=== PATIENT | female | born 1960 | race African-American/Black ===

== ENCOUNTER 2019-02-18 22:05 | Emergency (ER) | payer MEDICARE, OTHER ==
[~2019-02-18] VITALS: Ht 167.6 cm; Wt 100.0 kg
[2019-02-18] MEDS ORDERED: SODIUM CHLORIDE 0.9% 1,000 ML IV ONE (23:07)
[2019-02-18 23:37] LABS: BASOPHILS % 0.8 % (0.0-2.0); EOSINOPHILS % 1.2 % (0.0-5.0); HEMATOCRIT. 41.8 % (36.0-48.0); HEMOGLOBIN. 14.5 g/dL (12.0-16.0); LYMPHOCYTES % 25.7 % (20.0-50.0); MEAN CORPUSCULAR HEMOGLOBIN 31.4 pg (28.0-32.0); MEAN CORPUSCULAR VOLUME 90.8 fL (81.0-99.0); MEAN PLATELET VOLUME 11.1 fl (7.4-10.4); MONOCYTES % 5.6 % (2.0-8.0); NEUTROPHILS % 66.7 % (40.0-76.0); PLATELET 219 x1000/uL (130-400); RED BLOOD CELL COUNT 4.61 mill/uL (4.2-5.4); RED CELL DISTRIBUTION WIDTH 12.9 % (11.6-14.6)
[2019-02-18 23:45] LABS: CHLORIDE 106 mEq/L (98-107)
[2019-02-19 03:31] VITALS: BP 185/64
== END 2019-02-19 03:40 | disposition home or self-care (01) ==
LOC: ER 22:44
DX: N17.9 Acute kidney failure, unspecified (principal); I12.9 Hypertensive chronic kidney disease with stage 1 through stage 4 chronic kidney disease, or unspecified chronic kidney disease; E86.0 Dehydration; R42 Dizziness and giddiness; R11.2 Nausea with vomiting, unspecified; R19.7 Diarrhea, unspecified; Z86.73 Personal history of transient ischemic attack (TIA), and cerebral infarction without residual deficits
CPT/HCPCS: 36415; 80053; 85025; 96360; 96361; 99283; J7030

== ENCOUNTER 2022-05-01 19:51 | Inpatient (IN) | payer OTHER ==
[~2022-05-01] VITALS: Ht 165.1 cm; Wt 95.3 kg
[2022-05-01] MEDS ORDERED: LABETALOL 5MG/ML SYR 20 MG/4 ML SYRINGE IV NR (22:00)
[2022-05-01 22:37] LABS: BASOPHILS % 1.1 % (0.0-2.0); EOSINOPHILS % 0.3 % (0.0-5.0); HEMATOCRIT. 45.5 % (36.0-48.0); HEMOGLOBIN. 15.3 g/dL (12.0-16.0); LYMPHOCYTES % 20.4 % (20.0-50.0); MEAN CORPUSCULAR HEMOGLOBIN 30.8 pg (28.0-32.0); MEAN CORPUSCULAR VOLUME 91.9 fL (81.0-99.0); MEAN PLATELET VOLUME 10.9 fl (7.4-10.4); MONOCYTES % 5.2 % (2.0-8.0); PLATELET 203 x1000/uL (130-400); RED BLOOD CELL COUNT 4.95 mill/uL (4.2-5.4); RED CELL DISTRIBUTION WIDTH 13.7 % (11.6-14.6)
[2022-05-01 22:46] LABS: CHLORIDE 108 mEq/L (98-107)
[2022-05-01] MEDS ORDERED: ASPIRIN 325MG TABLET PO NR (23:15)
[2022-05-02] VITALS (11 sets, daily range): BP systolic 140–190; BP diastolic 64–110
[2022-05-02] MEDS ORDERED: IOHEXOL-350 100 ML BOTTLE ONE (00:53)
[2022-05-02] MEDS ORDERED: HYDRALAZINE 20MG/ML VIAL IV PRN (01:15)
[2022-05-02] MEDS: AMLODIPINE 5MG TABLET PO SCH ×3 (01:35→20:30)
[2022-05-02] MEDS ORDERED: ATOR10TA69 PO (04:49)
[2022-05-02] MEDS ORDERED: NIFE20CA MT (04:49)
[2022-05-02] MEDS ORDERED: HYDR-4135 PO (04:49)
[2022-05-02] MEDS ORDERED: LABE200T9 MT (04:49)
[2022-05-02] MEDS ORDERED: LISI10TA26 MT (04:49)
[2022-05-02] MEDS ORDERED: DEXTROSE 5% WATER 1,000 ML IV SCH (05:45)
[2022-05-02 06:41] LABS: BASOPHILS % 0.7 % (0.0-2.0); EOSINOPHILS % 0.3 % (0.0-5.0); HEMATOCRIT. 42.6 % (36.0-48.0); HEMOGLOBIN. 13.9 g/dL (12.0-16.0); LYMPHOCYTES % 30.3 % (20.0-50.0); MEAN CORPUSCULAR HEMOGLOBIN 30.5 pg (28.0-32.0); MEAN CORPUSCULAR VOLUME 93.8 fL (81.0-99.0); MEAN PLATELET VOLUME 11.2 fl (7.4-10.4); MONOCYTES % 8.1 % (2.0-8.0); NEUTROPHILS % 60.6 % (40.0-76.0); PLATELET 203 x1000/uL (130-400); RED BLOOD CELL COUNT 4.55 mill/uL (4.2-5.4); RED CELL DISTRIBUTION WIDTH 14.1 % (11.6-14.6)
[2022-05-02] MEDS: CLONIDINE 0.1MG TABLET PO PRN ×2 (08:26→18:33)
[2022-05-02] MEDS ORDERED: ATORVASTATIN CALCIUM 10MG TABLET PO SCH (09:00)
[2022-05-02] MEDS ORDERED: LISINOPRIL 10MG TABLET PO SCH (09:00)
[2022-05-02] MEDS ORDERED: NIFEDIPINE XL 30MG TAB PO SCH (09:00)
[2022-05-02] MEDS: ASPIRIN 81MG TABLET PO SCH (13:03)
[2022-05-02] MEDS: HYDRALAZINE HCL 50MG TABLET PO SCH ×2 (13:04→17:47)
[2022-05-02] MEDS: LABETALOL HCL 200MG TABLET PO SCH ×2 (13:04→17:47)
[2022-05-02] MEDS: CLOPIDOGREL 75MG TABLET PO SCH (18:33)
[2022-05-02] MEDS: ATORVASTATIN CALCIUM 40MG TABLET PO SCH (20:30)
[2022-05-02 21:02] LABS: CLARITY URINE CLEAR (CLEAR); COLOR URINE YELLOW (YELLOW); KETONES URINE NEGATIVE (NEGATIVE); LEUKOCYTE ESTERASE URINE NEGATIVE (NEGATIVE); NITRITE URINE NEGATIVE (NEGATIVE); OCCULT BLOOD URINE NEGATIVE (NEGATIVE); PH URINE 6.5 (4.5-8.0); PROTEIN URINE 1+ (NEGATIVE); SPECIFIC GRAVITY URINE 1.026 (1.005-1.030)
[2022-05-02 21:20] LABS: *AMPHETAMINES SCREEN URINE NEGATIVE (NEGATIVE); *BARBITURATES SCREEN URINE NEGATIVE (NEGATIVE); *BENZODIAZEPINES SCREEN URINE NEGATIVE (NEGATIVE); *COCAINE SCREEN URINE NEGATIVE (NEGATIVE); CANNABINOID URINE SCREEN NEGATIVE (NEGATIVE); METHADONE URINE SCREEN NEGATIVE (NEGATIVE); OPIATES URINE SCREEN NEGATIVE (NEGATIVE); PHENCYCLIDINE URINE SCREEN NEGATIVE (NEGATIVE)
[2022-05-03] VITALS (12 sets, daily range): BP systolic 99–161; BP diastolic 52–94
[2022-05-03 06:56] LABS: HEMATOCRIT 41.8 % (36.0-48.0); HEMOGLOBIN 14.1 g/dL (12.0-16.0); MEAN CORPUSCULAR VOLUME 92.2 fL (81.0-99.0); PLATELET 188 x1000/uL (130-400); RED BLOOD CELL COUNT 4.53 mill/uL (4.2-5.4); RED CELL DISTRIBUTION WIDTH 14.1 % (11.6-14.6)
[2022-05-03] MEDS: AMLODIPINE 5MG TABLET PO SCH ×2 (09:10→20:27)
[2022-05-03] MEDS: CLOPIDOGREL 75MG TABLET PO SCH (09:10)
[2022-05-03] MEDS: HYDRALAZINE HCL 50MG TABLET PO SCH ×3 (09:10→18:26)
[2022-05-03] MEDS: ASPIRIN 81MG TABLET PO SCH (09:10)
[2022-05-03] MEDS: LABETALOL HCL 200MG TABLET PO SCH ×2 (09:11→20:27)
[2022-05-03] MEDS ORDERED: POTASSIUM CHLORIDE 20MEQ/PACKET PO NR (10:45)
[2022-05-03] MEDS: NIFEDIPINE XL 30MG TAB PO SCH ×2 (11:24→20:27)
[2022-05-03] MEDS ORDERED: BISACODYL 5MG TABLET PO PRN (14:00)
[2022-05-03] MEDS: DEXT 5%/0.45% NACL KCL 20MEQ/L 1,000 ML IV SCH (17:00)
[2022-05-03] MEDS: ATORVASTATIN CALCIUM 40MG TABLET PO SCH (20:25)
[2022-05-03] MEDS ORDERED: APIX5TAB PO (21:23)
[2022-05-03] MEDS ORDERED: LISI40TA13 PO (21:23)
[2022-05-03] MEDS ORDERED: HYDR100T26 PO (21:24)
[2022-05-03] MEDS ORDERED: ATOR40TA70 PO (21:25)
[2022-05-03] MEDS ORDERED: NIFE90TA60 PO (21:25)
[2022-05-03] MEDS ORDERED: SOTA80TA PO (21:28)
[2022-05-04] VITALS (9 sets, daily range): BP systolic 127–157; BP diastolic 47–86
[2022-05-04] MEDS: DEXT 5%/0.45% NACL KCL 20MEQ/L 1,000 ML IV SCH (04:05)
[2022-05-04 06:44] LABS: BASOPHILS % 0.6 % (0.0-2.0); EOSINOPHILS % 1.8 % (0.0-5.0); HEMATOCRIT. 40.8 % (36.0-48.0); HEMOGLOBIN. 13.3 g/dL (12.0-16.0); LYMPHOCYTES % 30.4 % (20.0-50.0); MEAN CORPUSCULAR HEMOGLOBIN 30.4 pg (28.0-32.0); MEAN CORPUSCULAR VOLUME 93.6 fL (81.0-99.0); MEAN PLATELET VOLUME 10.8 fl (7.4-10.4); MONOCYTES % 8.1 % (2.0-8.0); NEUTROPHILS % 59.1 % (40.0-76.0); PLATELET 202 x1000/uL (130-400); RED BLOOD CELL COUNT 4.36 mill/uL (4.2-5.4); RED CELL DISTRIBUTION WIDTH 13.9 % (11.6-14.6)
[2022-05-04 06:58] LABS: FOLIC ACID (FOLATE) SERUM 11.1 ng/mL (>5.38)
[2022-05-04] MEDS: LABETALOL HCL 200MG TABLET PO SCH (08:07)
[2022-05-04] MEDS: ASPIRIN 81MG TABLET PO SCH (08:07)
[2022-05-04] MEDS: NIFEDIPINE XL 30MG TAB PO SCH (08:09)
[2022-05-04] MEDS: AMLODIPINE 5MG TABLET PO SCH (08:09)
[2022-05-04] MEDS: CLOPIDOGREL 75MG TABLET PO SCH (08:09)
[2022-05-04] MEDS: HYDRALAZINE HCL 50MG TABLET PO SCH ×2 (08:14→12:33)
[2022-05-04] MEDS ORDERED: CYANOCOBALAMIN 1000MCG/ML VIAL IM SCH (13:45)
[2022-05-04] MEDS ORDERED: LACTULOSE 20G/30ML UDC PO SCH (14:00)
[2022-05-04] MEDS ORDERED: LIP40 PO (14:46)
[2022-05-04] MEDS ORDERED: CLOP75TA15 PO (14:46)
[2022-05-04] MEDS ORDERED: ASPI-1160 PO (14:46)
== END 2022-05-04 16:44 | disposition home or self-care (01) | DRG 64 ==
LOC: ER 19:51 → MICUSO 05-02 01:20 → ENRESERV 05-02 01:34 → 5EST 05-02 04:44
PROVIDERS: ADMIT Internal Medicine; ATTEND Internal Medicine
DX: I63.519 Cerebral infarction due to unspecified occlusion or stenosis of unspecified middle cerebral artery (principal); I21.4 Non-ST elevation (NSTEMI) myocardial infarction; I48.92 Unspecified atrial flutter; G81.91 Hemiplegia, unspecified affecting right dominant side; N17.9 Acute kidney failure, unspecified; I48.91 Unspecified atrial fibrillation; E53.8 Deficiency of other specified B group vitamins; E78.5 Hyperlipidemia, unspecified; E87.6 Hypokalemia; I08.1 Rheumatic disorders of both mitral and tricuspid valves; I12.9 Hypertensive chronic kidney disease with stage 1 through stage 4 chronic kidney disease, or unspecified chronic kidney disease; N18.30 Chronic kidney disease, stage 3 unspecified; I16.0 Hypertensive urgency; R47.1 Dysarthria and anarthria; R26.89 Other abnormalities of gait and mobility; R53.81 Other malaise; R13.10 Dysphagia, unspecified; R29.810 Facial weakness; R47.01 Aphasia; Z79.01 Long term (current) use of anticoagulants; Z79.899 Other long term (current) drug therapy; Z82.49 Family history of ischemic heart disease and other diseases of the circulatory system; Z91.14 Patient's other noncompliance with medication regimen
CPT/HCPCS: 36415; 70496; 70498; 71045; 80048; 80053; 80061; 80305; 81003; 82140; 82306; 82607; 82746; 83036; 83735; 83880; 84443; 84484; 85025; 85027; 92610; 93005; 93306; 93308; 97116; 97162; 97165; 99291; J0360; J3490; J7070; Q9967

== ENCOUNTER 2023-02-19 08:51 | Emergency (ER) | payer MEDICARE, OTHER ==
[~2023-02-19] VITALS: Ht 170.2 cm; Wt 77.0 kg
[~2023-02-19 08:51] MED LIST: APIX5TAB PO; ASPI-1160 PO; CLOP75TA15 PO; HYDR100T26 PO; LABE200T9 MT; LIP40 PO; LISI40TA13 PO; NIFE90TA60 PO; SOTA80TA PO
[2023-02-19 08:53] VITALS: O2SAT 96
[2023-02-19 10:18] LABS: CHLORIDE 112 mEq/L (98-107)
[2023-02-19 10:19] LABS: BASOPHILS % 0.6 % (0.0-2.0); EOSINOPHILS % 0.4 % (0.0-5.0); HEMATOCRIT. 40.9 % (36.0-48.0); HEMOGLOBIN. 13.9 g/dL (12.0-16.0); LYMPHOCYTES % 15.4 % (20.0-50.0); MEAN CORPUSCULAR HEMOGLOBIN 31.9 pg (28.0-32.0); MEAN CORPUSCULAR VOLUME 94.1 fL (81.0-99.0); MEAN PLATELET VOLUME 10.6 fl (7.4-10.4); NEUTROPHILS % 79.6 % (40.0-76.0); PLATELET 292 x1000/uL (130-400); RED BLOOD CELL COUNT 4.34 mill/uL (4.2-5.4); RED CELL DISTRIBUTION WIDTH 14.1 % (11.6-14.6)
[2023-02-19 15:00] VITALS: BP 170/89; PULSE 86; RESP 18; TEMP 98.5
== END 2023-02-19 17:14 | disposition home or self-care (01) ==
LOC: ER 08:51
DX: R55 Syncope and collapse (principal); I48.20 Chronic atrial fibrillation, unspecified; R77.8 Other specified abnormalities of plasma proteins; I10 Essential (primary) hypertension; E78.00 Pure hypercholesterolemia, unspecified; Z86.73 Personal history of transient ischemic attack (TIA), and cerebral infarction without residual deficits
CPT/HCPCS: 36415; 80053; 84484; 85025; 99283